=== PATIENT | female | born 1990 ===

== ENCOUNTER 2017-01-21 10:24 | Day surgery (SDC) | payer BC, OTHER ==
[2017-01-08 11:13] VITALS: BMI 20.2
[2017-01-21] MEDS ORDERED: Lactated Ringer's 1,000 ML IV ONE (12:13)
[2017-01-21] MEDS ORDERED: Midazolam 2 MG/2 ML VIAL ONE (12:20)
[2017-01-21] MEDS ORDERED: Propofol 10 mg/ml Inj (20 ML) ONE (12:20)
[2017-01-21] MEDS ORDERED: HYDROmorphone 0.5 mg/0.5 ml ISec IVP PRN (12:52)
--- NOTE | 2017-01-21 12:54 | PCM.SURG1 ---
Surgeon's Initial Post Op Note - Surgeon's Notes Surgeon: Dr Becker Filler Picker: None Type of Anesthesia: General LMA Anesthesia Administered By: Dr. Garcia Pre-Operative Diagnosis: 26 yo witH Menorrhagia, Irregular mentrual cycle and failure of medical therapy Operative Findings: AV uterus 10-12 with endometrial polyp Post-Operative Diagnosis: Same as above Operation Performed: Hysteroscopy Myosure , Fractional D and C Specimen/Specimens Removed: Polyp , EMC,ECC Estimated Blood Loss: EBL {In ML}: 10 Blood Products Given: N/A Drains Used: No Drains Post-Op Condition: Good Date of Surgery/Procedure: 01/21/17 Time of Surgery/Procedure: 12:54
[2017-01-21 14:02] VITALS: TEMP 97.8
[2017-01-21 15:58] VITALS: BP 102/66; PULSE 77; RESP 18; O2SAT 100
--- NOTE | 2017-01-21 21:56 | OP ---
PROCEDURE DATE: 01/21/2017 PREOPERATIVE DIAGNOSES: A 26-year-old female with history of menorrhagia, irregular menstrual period, failure medical therapy, endometrial polyp. POSTOPERATIVE DIAGNOSES: A 26-year-old female with history of menorrhagia, irregular menstrual period, failure medical therapy, endometrial polyp. PROCEDURE: Hysteroscopy and MyoSure and a fractional dilation and curettage. SURGEON: Ashleigh Arteaga MD. ANESTHESIOLOGIST: *------*. TYPE OF ANESTHESIA: General LMA. FINDINGS: Anteverted uterus approximately 10-12 weeks gestation noted to have an endometrial polyp. COMPLICATIONS: None. ESTIMATED BLOOD LOSS: Approximately 10 mL. IV FLUIDS: 500 mL. INTAKE AND OUTPUT: 100 mL. SPECIMENS: EMC, ECC and polyp. DESCRIPTION OF PROCEDURE: The patient was informed of the risk factors, benefits, and alternative of the procedure. Risks did include an infection, bleeding, damages to surrounding organs or tissues, complications from the anesthesia and possible . After informed consent was obtained, she was then taken to the operating room, prepped and draped in normal sterile fashion, placed in dorsal lithotomy position. A weighted speculum was placed into the vagina. The anterior lip of the cervix was grasped with a single-toothed tenaculum. The uterus was gently sounded to approximately 10 cm. Upon complete uterine dilation, the scope was then placed and complete surveillance of the uterine cavity was then performed. In that particular instance, the scope was then placed inside the vagina and the MyoSure device was activated. Under direct visualization, the endometrial polyp was removed and submitted to pathology. In that particular instance, the scope together with the MyoSure was removed from the vagina and a fractional D and C was performed. EMC and ECC was submitted to pathology. The scope was reintroduced, making sure there were no areas of perforation. Upon completion, all instruments were removed from the vagina. Instruments and lap counts were correct x2. The patient was then taken to the recovery room in stable condition. Ashleigh Arteaga MD
== END 2017-01-21 14:50 | disposition home or self-care (01) ==
LOC: C.SDS 10:24
PROVIDERS: ATTEND Obstetrics & Gynecology
DX: N84.0 Polyp of corpus uteri (principal); N92.0 Excessive and frequent menstruation with regular cycle
CPT/HCPCS: 58558; 88305; J2250; J2405; J2704; J3010; J7120